=== PATIENT | male | born 1940 | race Caucasian/White ===

== ENCOUNTER 2022-07-06 15:14 | Emergency (ER) | payer OTHER, MEDICARE, SELFPAY ==
[2022-07-06 15:18] VITALS: BP 144/72; PULSE 80; TEMP 35.8; O2SAT 97; BMI 32.6
--- NOTE | 2022-07-06 15:43 | CRLHL7_ITS ---
For Patients: As a result of the Century Cures Act, medical imaging exams and procedure reports are released immediately into your electronic medical record. You may view this report before your referring provider. If you have questions, please contact your health care provider. Indication: Right upper quadrant pain Technique: Sonography of the abdomen was performed limited to the structures discussed below Comparison: None Findings: The liver is normal size and configuration. No focal mass. No biliary ductal dilatation. The pancreas as visualized appears normal. Portions are obscured by bowel gas. There is cholelithiasis. Wall thickness is normal at 2 millimeters. No pericholecystic fluid. The common duct measures 5 millimeters which is normal. There is a sonographic Montgomery`s sign The right kidney is normal in size measuring 9.7 x 4.8 x 6.5 centimeters. Small cyst noted measuring 1.2 centimeters in greatest dimension inferiorly. The right kidney is otherwise unremarkable. Impression: Cholelithiasis but no ultrasound findings of acute cholecystitis or common duct obstruction. Dictated by Marcellus Stone MD @ 07/06/2022 5:01:18 PM (Electronically Signed)
--- NOTE | 2022-07-06 16:02 | ED.ABDPAIN ---
HPI - Abdominal Pain General Date Seen: 07/06/22 Chief Complaint: Abdominal Pain Stated Complaint: GALL BLADDER ISSUE - SENT BY CLINIC Time Seen by Provider: 07/06/22 15:20 Source: patient and family Mode of arrival: ambulatory Limitations: no limitations History of Present Illness HPI narrative: 81-year-old gentleman presents here with right upper quadrant pain, he has had this for 3-4 days it is intermittent, the pain does go to his back, not related to eating he says in fact he does the eating effects it is more how he sits or twists or turns. Denies a fevers chills associated with this no nausea vomiting, is bowel movements have been normal, with no dysuria frequency. Denies any cough cold-like symptoms fevers chills or sweats and says he has absolutely no COVID. Went to the clinic today and was told that he could be seen and they suggested that he come to the emergency room. Has not tried any medications for this describes the pain is 5/10, he has company by his . MD elicited complaint: abdominal pain Pertinent past history: myocardial infarction Onset (ago): day(s) (3) Pain Consistency: intermittent and colicky Location: RUQ Severity: moderate Quality: cramping and fullness Radiation: R flank Exacerbating factors: movement Relieving factors: rest Related Data Home Medications Medication Instructions Recorded Confirmed alfuzosin 10 mg tablet,extended mg PO 07/06/22 release 24 hr rosuvastatin 10 mg tablet mg 07/06/22 Allergies Allergy/AdvReac Type Severity Reaction Status Date / Time No Known Drug Allergies Allergy Verified 07/06/22 15:24 Review of Systems Status of ROS Reports: 10 or more systems reviewed and unremarkable except as noted in History and below [facility] Medical History BPH (benign prostatic hyperplasia) Hernia Hypertension Surgical History History of coronary artery bypass graft Social History Smoking Status: Never smoker How often do you have a drink containing alcohol: never AUDIT-C Alcohol total score: 0 Non-prescribed substance use: denies use service: Yes Exam Const: Vital Signs, click to edit/add: Vital Signs - 24 hr 07/06/22 15:18 Temperature 96.5 F L Pulse Rate [Pulse Oximeter] 80 Blood Pressure [Ri ght Upper Arm] 144/72 H Pulse Oximetry 97 Oxygen Delivery Me thod Room Air Documenting provider has reviewed patient's vital signs: yes Common normals: no apparent distress, average body habitus, oriented x3, no limitations and well nourished HENMT: Common normals: normocephalic, head/scalp atraumatic, hearing grossly normal bilaterally, external ears normal, EAC's normal, TM's normal bilaterally, external nose normal, nasal mucous membranes and turbinates normal and moist oral mucous membranes Head and scalp: normal to inspection, normocephalic and atraumatic Face and sinus: normal facial exam, sinuses nontender and face symmetric Nose: external nose normal, nares normal and nasal mucous membranes and turbinates normal External ear: external ears normal External auditory canal: EAC's normal Tympanic membrane: TM's normal bilaterally Mouth: oral and palatal mucosa normal Teeth and gingiva: abnormal tooth and associated gingiva Throat: posterior oropharynx normal, tonsils normal and uvula midline Eye: Common normals: PERRL, EOMs intact bilaterally, conjunctivae normal, no scleral icterus, no papilledema, normal visual duffy by confrontation and fundi normal bilaterally General eye: normal appearance of both eyes Conjunctiva: conjunctiva(e) normal Pupil: PERRL Direct Ophthalmoscopy: no papilledema and fundi normal bilaterally Neck & C-Spine: Common normals: full ROM, no lymphadenopathy, supple, no meningeal signs, no JVD, thyroid normal and no carotid bruits General: normal visual inspection, trachea midline, anterior neck swelling and lymphadenopathy Thyroid: thyroid normal Lymph: Lymphatic: no lymphadenopathy noted and no lymphedema noted Chest: Common normals: inspection of chest normal Resp: Common normals: normal respiratory effort, no retractions, no use of accessory muscles and clear to auscultation bilaterally Auscultation: clear to auscultation bilaterally Cardio: Common normals: no JVD, regular rate, regular rhythm, S1 normal heart sound, S2 normal heart sound, no gallops, no clicks, no murmurs, no rub and peripheral pulses 2+ throughout Rate: regular rate Rhythm: regular rhythm Heart sounds: S1 normal and S2 normal Peripheral pulses: pulses 2+ throughout GI: Common normals: Normal to inspection, nondistended, normoactive bowel sounds present and no hepatosplenomegaly Inspection: normal to inspection Auscultation: normoactive bowel sounds Palpation: tender Details: RUQ and Montgomery's sign and no hepatosplenomegaly : Common normals: no CVA tenderness Bladder/kidney exam: no CVA tenderness Back & Pelvis: Common normals: no CVA tenderness, thoracic and lumbar spine normal to inspection, no thoracic nor lumbar tenderness, thoraco-lumbar ROM normal and straight leg raise negative bilaterally Extremity: Common normals: normal to inspection, full ROM, normal capillary refill, no joint enlargement, no clubbing, cyanosis or edema, no calf tenderness and no pedal edema Neuro: Common normals: oriented x3 Meningeal signs: no meningeal signs Course Vital Signs Vital signs: Initial Vital Signs Temperature 96.5 F L 07/06/22 15:18 Temperature Source Temporal Artery Scan 07/06/22 15:18 Pulse Rate 80 07/06/22 15:18 Blood Pressure 144/72 H 07/06/22 15:18 Blood Pressure Mean 96 07/06/22 15:18 Blood Pressure Position Supine 07/06/22 15:18 Pulse Oximetry 97 07/06/22 15:18 Oxygen Delivery Method 07/06/22 15:18 Vital Signs Temperature 96.5 F L 07/06/22 15:18 Pulse Rate 80 07/06/22 15:18 Blood Pressure 144/72 H 07/06/22 15:18 Pulse Oximetry 97 07/06/22 15:18 Oxygen Delivery Method 07/06/22 15:18 Temperature 96.5 F L 07/06/22 15:18 Pulse Rate 80 07/06/22 15:18 Blood Pressure 144/72 H 07/06/22 15:18 Pulse Oximetry 97 07/06/22 15:18 Oxygen Delivery Method 07/06/22 15:18 MDM - Abdominal Pain MDM Narrative Medical decision making narrative: During this evaluation of this patient I considered multiple differential diagnosis is which included the life-threatening such as appendicitis, aortic aneurysm, mesenteric ischemia, bowel perforation, volvulus, and bowel obstruction. Other differential diagnosis is include but are not limited to cholecystitis, pancreatitis, hepatitis, gastritis, GERD, diverticulitis, peptic ulcer disease, pyelonephritis/UTI, renal colic/stone, testicular torsion as well as other acute scrotal processes, inflammatory bowel disease, as well as other etiologies Differential Diagnosis Differential diagnosis: Likely abdominal pain, acute appendicitis, calculus of kidney, constipation, diverticulitis, gastroenteritis, pancreatitis and small bowel obstruction Medical Records Attestation: I reviewed the patient's medical records. Lab Data Attestation: I reviewed the patient's lab results. Discharge Plan Discharge Prescriptions: No Action rosuvastatin 10 mg tablet Label Comments: TAKE 1 TABLET BY MOUTH AT BEDTIME alfuzosin 10 mg tablet extended release 24 hr PO Label Comments: TAKE 1 TABLET BY MOUTH ONCE DAILY WITH MEAL Follow Up/Referrals: Marco Baldwin MD [Primary Care Provider] -
--- OUTSIDE RECORDS SUMMARY | 2022-07-06 16:22 | XMS_ITS | Continuity of Care Document ---
:1940 [facility] [address] [place] [address]- Encounter [facility]B Date(s): 12/02/20 - 12/03/20 [facility] [address] [place] [address]- [facility] Discharge Disposition: Routine Discharge Attending Physician: ISABELLE EASTMAN Allergies, Adverse Reactions, Alerts No Known Medication Allergies Assessment and Plan Extracted from: Title: Urgent Care/Same Day Care Note Author: JOSE EASTMAN Date: 12/02/20 1.??Dysuria There is evidence of??sugar in your uri ne,??is important to monitor??your blood sugar??and follow-up with your primary care physician regards to your elevated blood glucose.?? Additionally, this can co ntribute to??urinary tract infections.?? A prescription for Flomax was sent to your pharmacy??to help with??voiding your??bladder, and with urinary frequency and urgency. ??Additionally, an antibiotic w as prescribed??due to concerns about??ur inary tract infection/prostatitis.?? Take this medication as directed.?? Is importantly follow-up with your primary care physician??for these issues??for ongoing care/treatment.?? Ordered: [id number] Urinalysis Dipstick, Manual POC A mb, 12/02/20 17:01:00 MST, Dysuria 41101 Glucose, Finger Stick POC Amb, 17:18:00 MST, Dysuria Blood glucose elevated Urine Culture, Source: [place], Routine, Routine, RT, 12/02/20 17:18:00 MST, Nurse Collect, 12/02/20 17:20:00 MST, Dysuria, [facility] ?? 2.??Blood glucose elevated Blood glucose in office today was 182.? ? Recommend following up with??primary care physician??for further recommendations about monitoring and treatment??of elevated blood glucose. Ordered: [id number] Glucose, Finger Stick POC Amb, 17:18:00 MST, Dysuria Blood glucose elevated ?? Orders: ciprofloxacin, 250 mg 1 tab, Oral, Q12H , X 5 days, # 10 tab, 0 Refill(s), Signed: 12/02/20 17:27:00 MST, Acute, Pharmacy: [id number], 1 tab Oral Q12H,x5 days, 175 cm, 12/02/20 16:35:00 MS T, Height, 105 kg, 12/02/20 16:39:00 MST , Weight Dosing tamsulosin, 0.4 mg 1 cap, Oral, Daily, # 3 cap, 0 Refill(s), Signed: 12/02/20 17:28:00 MST, Maintenance, Pharmacy: [id number], 1 cap Oral Daily,x3 days, 175 cm, 12/02/20 16:35:00 MST, Kleber ght, 105 kg, 12/02/20 16:39:00 MST, [facility] ht Dosing Diagnostic Tests PendingUrine Culture 12/02/20 Medications Adult Aspirin Regimen 81 mg oral delayed release tablet 81 mg 1 tab, Oral, Daily, 0 Refill(s), Signed: 12/02/20 16:37:00 MST, Maintenance Start Date: 12/02/20 Status: OrderedamLODIPine 5 mg, Oral, Daily, 0 Refill(s), Signed: 11/08/19 5:55:00 MST, Acute Start Date: 11/08/19 Status: OrderedCipro 250 mg oral tablet 250 mg 1 tab, Oral, Q12H, X 5 days, # 10 tab, 0 Refill(s), Signed: 12/02/20 17:27:00 MST, Acute, Pharmacy: [id number], 1 tab Oral Q12H,x5 days, 175 cm, 12/02/20 16:35:00 MST, Height, 105 kg, 12/02/20 16:39:00 MST, Weight Dosing Start Date: 12/02/20 Stop Date: 12/07/20 Status: OrderedFlomax 0.4 mg oral capsule 0.4 mg 1 cap, Oral, Daily, # 3 cap, 0 Refill(s), Signed: 12/02/20 17:28:00 MST, Maintenance, Pharmacy: [id number], 1 cap Oral Daily,x3 days, 175 cm, 12/02/20 16:35:00 MST, Height, 105 kg,12/02/20 16:39:00 MST, Weight Dosing Start Date: 12/02/20 Stop Date: 12/05/20 Status: Orderedrosuvastatin 10 mg, Oral, Daily, 0 Refill(s), Signed: 11/08/19 5:55:00 MST, Acute Start Date: 11/08/19 Status: Ordered Problem List Condition Effective Dates Status Health Status Informant Aortic stenosis, moderate(Confirmed) Active Hypertension(Confirmed) Active Insulin resistance(Confirmed) Active Procedures Procedure Date Related Diagnosis Body Site Status CABG - Coronary artery bypass graft 2008 Completed Hernia repair 1988 Completed Results Laboratory List Name Date 29056 Glucose, Finger Stick POC Amb 12/02/20 49511 Urinalysis Dipstick, Manual POC Amb 12/02/20 Most recent to oldest [Reference Range]: 1 POCT Urine Clarity Clear (12/02/20 5:20 PM) POCT Glucose Glucometer Capillary [70-115 mg/dL] 182 m g/dL *H* (12/02/20 5:20 PM) Blood Glucose Testing Reason Routine (12/02/20 5:20 PM) Blood Glucose Stick Site Finger (12/02/20 5:20 PM) POCT Specific [place] 1.025 (12/02/20 5:20 PM) POCT pH 6.0 (12/02/20 5:20 PM) POCT Urobilinogen Normal (12/02/20 5:20 PM) POCT Leukocyte Esterase Trace (15 Tariq/uL) (12/02/20 5:20 PM) POCT Nitrite Negative (12/02/20 5:20 PM) POCT Protein Negative (12/02/20 5:20 PM) POCT Ketones Negative (12/02/20 5:20 PM) POCT Bilirubin Negative (12/02/20 5:20 PM) POCT Blood Negative (12/02/20 5:20 PM) POCT Glucose Urine Dipstick 1+ (12/02/20 5:20 PM) POCT Color Urine Dipstick Yellow (12/02/20 5:20 PM) Vital Signs Most recent to oldest [Reference Range]: 1 Respiratory Rate 17 br/min (12/02/20 4:35 PM) Blood Pressure 146/90 mmHg (12/02/20 4:35 PM) SpO2 96 % (12/02/20 4:35 PM) Height 175 cm (12/02/20 4:35 PM) Weight 105 kg (12/02/20 4:35 PM) BMI (Pt Care) 34.29 kg/m2 (12/02/20 4:35 PM) Temperature Oral 36.2 DegC (12/02/20 4:35 PM) Heart Rate Monitored 93 bpm (12/02/20 4:35 PM) Social History Social History Type Response Smoking Status Never (less than 100 in life time) entered on: 12/02/20 Sex Hospital Discharge Instructions Patient Tpwkenwsh52/26/2021 17:29:44Diabetes with High Blood SugarDiabetes with High Blood Sugar You have been treated for high blood sugar (hyperglycemia). This may be because of an infection or other illness. Or it may be from eating too many sweets or starches. Or it may be from not taking enough insulin or other diabetes medicine. Home care Check your blood sugar level at least 2 times a day. Write it down the results. Do this before breakfast and before dinner. If you take insulin, also write down your routine insulin dose. Note any other doses you needed based on your sliding scale or as advised by your healthcare provider. Do this forthe next 3 to 5 days. High blood sugar may cause symptoms that you can learn to spot. These include: ???Peeing often ???Thirst ???Headache ???Breath that smells fruity ???Nausea or vomiting ???Belly pain If you have symptoms of high blood sugar, use a blood or urine test to find out what your blood sugar level is. If it is above your usual range, use the sliding scale regular insulin dose from your healthcare provider. Call your provider for advice if you were not given a range for your insulin dose. If your blood sugar is over 240 mg/dL, check your urine for ketones. Follow-up care Follow up with your healthcare provider, or as advised. You may need to meet with your provider in the next week. You will likely look at your blood sugar records together. You may need to change your dose of insulin or other diabetes medicine. When to seek medical advice Call your healthcare provider right away if these occur: ???Symptoms of high blood sugar that don't get better with the treatment your provider advised. Thisis especially true if you also have ketones in your urine. ???Blood sugar over 300 mg/dl. If you can???t reach your healthcare provider, go to a hospital emergency room or urgent care center. Call 911 Call 911 if you have any of the following: ???Confusion ???Dizziness, lightheadedness, or loss of consciousness ???Shortness of breath ???Chest pain ???Weakness of an arm, leg, or one side of the face ???Sudden trouble with speech or vision ?? 4644-7386 [employer]. All rights reserved. This information is not intended as a substitute for professional medical care. Always follow your healthcare professional's instructions. 12/02/2020 17:29:12ProstatitisProstatitis?? The prostate gland is located deep inside the body at the base of the bladder. Prostatitis is an inflammation of the prostate gland. This can occur with or without infection. Most cases of prostatitis are intermodal dispatcher (chronic). Most do not include a bacterial infection. ???Chronic prostatitis is more common in older men. It is often an inflammatory condition and not aninfection. But bacterial infection can also cause chronic prostatitis. It can cause pain in the rectum, urethra, bladder, or scrotum. It can also make you unable to fully empty the bladder.??You may urinate often. Or you may have burning with urination. Prostatitis may also cause painful ejaculation and erectile dysfunction. ???Acute prostatitis happens suddenly. This often occurs in??men younger than??35. It is from a bacterial infection. You may have severe symptoms such as fever, chills, muscle aches, and pain in the area??between the scrotum and anus (perineum). You may have a hard time urinating. Or you may have painor burning when urinating. There may be blood or pus in the urine. Your healthcare provider may do a??culture test??on prostate fluids or discharge from the penis. This will help figure out if bacteria are the cause. Treatment can include antibiotics, anti-inflammatory medicine, prostate medicines, and stool softeners. Home care These guidelines will help you care for yourself at home: ???Rest at home until the fever is gone and you are feeling better. ???A hot sitz bath may offer some relief. Fill a tub with 6 inches of hot water. Allow the water to run so you can keep it hot for 10 to 15 minutes. ???Drink plenty of fluids. Don't drink alcohol or caffeine until all symptoms are gone. ???If your healthcare gives you an antibiotic, take it exactly as you are told. Take it until it is all gone. ???Constipation causes straining and pain. Prevent constipation??by eating natural laxatives such asprunes, fresh fruits, and whole-grain cereals. If needed, use a mild [id number] (OTC) laxativefor constipation. An OTC stool softener may be used to keep the stools soft. ???If sex is uncomfortable or painful, don't have sex until symptoms get better. ???You may use OTC medicines for pain and fever, unless another medicine was given.??If you have chronic liver or kidney disease, talk with your healthcare provider before??using these medicines. Also talk with your provider if you've??ever had a stomach ulcer or GI (gastrointestinal) bleeding. Follow-up care Follow up with your healthcare provider, a urologist, or as advised to be sure you are responding totreatment. Your healthcare provider may want to see you after you finish your antibiotics to be surethe infection has cleared. If a culture was taken, you may call for the results as directed. A culture test can help your provider know if you are on the correct antibiotic. Call 911 Call 911if any of these occur: ???Weakness, dizziness, or fainting When to get medical advice Call your healthcare provider right away??if any of these occur: ???Fever of 100.4??F (38??C) or higher, or as directed by your healthcare provider ???Unable to pass urine for 8 hours ???Pressure or pain in your bladder gets worse ???Painful swelling of the testicle or scrotum ?? [id number] [employer]. All rights reserved. This information is not intended as a substitute for professional medical care. Always follow your healthcare professional's instructions.
[2022-07-06 16:33] LABS: Chloride* 102 mmol/L (96-114); Sodium* 141 mmol/L (135-149)
[2022-07-06 16:34] LABS: Albumin* 4.7 g/dL (3.3-5.0); Potassium* 4.3 mmol/L (3.6-5.1)
[2022-07-06 16:37] LABS: Alkaline Phosphatase* 73 U/L (40-150); Amylase* 117 U/L (18-89); Aspartate Amino Transferase* 58 U/L (12-35); Bilirubin Direct* 0.3 mg/dL (0.0-0.5); Bilirubin Total* 0.7 mg/dL (0.1-1.5); Blood Urea Nitrogen* 22 mg/dL (7-30); Calcium* 9.2 mg/dL (8.4-10.6); Carbon Dioxide* 28 mmol/L (20-32); Creatinine* 0.9 mg/dL (0.5-1.5); Est. Creatinine Clearance* 57.93; Estimated Glomerular Filt Rate 86 ml/min; Glucose* 90 mg/dL (60-115); Lipase* 79 U/L (23-300); Total Protein* 8.3 g/dL (6.0-8.3)
[2022-07-06 16:38] LABS: Alanine Aminotransferase* 22 U/L (4-50)
[2022-07-06 16:40] LABS: Basophils Absolute Auto 0.01 K/uL (0.00-0.30); Basophils Percent Auto 0.2 % (0.0-3.0); Eosinophils Absolute Auto 0.02 K/uL (0.00-0.50); Eosinophils Percent Auto 0.4 % (0.0-7.0); Hematocrit 41.6 % (37.0-53.0); Hemoglobin* 14.2 gm/dL (13.5-17.5); Immature Granulocytes Abs Auto 0.07 K/uL (0.00-0.30); Lymphocytes Absolute Auto 1.88 K/uL (0.90-2.90); Lymphocytes Percent Auto 38.8 % (20-44); Mean Corpuscular HGB Conc 34 gm/dL (32-36); Mean Corpuscular Hemoglobin 31 pg (26-34); Mean Corpuscular Volume 90 fL (80-100); Monocytes Percent Auto 16.1 % (0.0-11.0); Neutrophils Absolute Auto 2.08 K/uL (1.7-7.0); Neutrophils Percent Auto 43.1 % (42.0-72.0); Platelet Count* 96 K/uL (140-440); RDW Coefficient of Variation % 12.1 % (11.5-15.5); Red Blood Count 4.61 m/uL (4.30-5.90); White Blood Count* 4.84 K/uL (4.50-11.00)
[2022-07-06 16:42] LABS: C Reactive Protein* < 0.5 mg/dL (0.5-1.0)
[2022-07-06 16:43] LABS: Slide Review Reflex No
[2022-07-06 16:55] LABS: Appearance Urine Clear (Clear); Bilirubin Urine Negative (Negative); Blood Urine Negative (Negative); Color Urine Yellow (Yellow); Glucose Urine Negative (Negative); Ketones Urine Negative (Negative); Leukocyte Esterase Urine Negative (Negative); Nitrite Urine Negative (Negative); Protein Urine Negative (Negative); Specific Gravity Urine 1.015 (1.000-1.030); Urobilinogen Urine 0.2 (0.2-1.0); pH Urine 5.5 (5.0-8.5)
--- NOTE | 2022-07-06 17:02 | ED.ABDPAIN ---
HPI - Abdominal Pain General Date Seen: 07/06/22 Chief Complaint: Abdominal Pain Stated Complaint: GALL BLADDER ISSUE - SENT BY CLINIC Time Seen by Provider: 07/06/22 15:20 Source: patient and family Mode of arrival: ambulatory Limitations: no limitations History of Present Illness HPI narrative: Patient is a very nice 81-year-old gentleman who presents here for right upper quadrant pain that he has had for 3-4 days, is not really worsening he describes the pain as 5/10, there is some radiation to his back, but no where else. He finds no worsening with eating, he is has some with movement he can make it worse. He was told maybe is gallbladder was sent here. 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 Denies any fevers chills or sweats there is no nausea vomiting, denies any diarrhea dysuria frequency, has not taking any medications for this. MD elicited complaint: abdominal pain Pertinent past history: myocardial infarction Onset (ago): day(s) (3) Pain Consistency: intermittent Location: RUQ Severity: moderate Quality: cramping and dull Radiation: R flank Migration to: no migration Exacerbating factors: movement Relieving factors: nothing Related Data Home Medications Medication Instructions Recorded Confirmed alfuzosin 10 mg tablet,extended mg PO 07/06/22 release 24 hr rosuvastatin 10 mg tablet mg 07/06/22 Allergies Allergy/AdvReac Type Severity Reaction Status Date / Time No Known Drug Allergies Allergy Verified 07/06/22 15:24 Review of Systems Status of ROS Reports: 10 or more systems reviewed and unremarkable except as noted in History and below PFSH PFS Medical History BPH (benign prostatic hyperplasia) Hernia Hypertension Surgical History History of coronary artery bypass graft Social History Smoking Status: Never smoker How often do you have a drink containing alcohol: never AUDIT-C Alcohol total score: 0 Non-prescribed substance use: denies use service: Yes Exam Narrative: Exam Narrative: Patient is a very nice gentleman in no apparent distress nontoxic sitting in the room. His pupils are equal round reactive to light there is no scleral icterus redness TMs bilaterally are normal oropharynx is normal there is no adenopathy anterior or posterior chains his neck is supple full range of motion is appreciated, chest is good air entry bilaterally with no wheezes crackles noted there is no signs of respiratory distress. Heart sounds are normal, but he does have a blowing systolic murmur across his precordium to his aortic area I described as 3 to 4/6. He tells me this is a known aortic stenosis murmur. Is followed by Cardiology. His abdomen shows some tenderness in the right upper quadrant and what I would describe as a positive Montgomery sign, but he does not seem that uncomfortable with that there is no pedal splenomegaly bowel sounds are normal, there is no rigidity, there is no CVA tenderness, and no hernias are noted on examination of his abdomen. His extremities appear normal, with no edema swelling, his normal pulses peripherally and power is normal both proximally and distally. Sensation is normal. Any does not have any rashes of the skin. Const: Vital Signs, click to edit/add: Vital Signs - 24 hr 07/06/22 15:18 Temperature 96.5 F L Pulse Rate [Pulse Oximeter] 80 Blood Pressure [Ri ght Upper Arm] 144/72 H Pulse Oximetry 97 Oxygen Delivery Me thod Room Air Documenting provider has reviewed patient's vital signs: yes Common normals: no apparent distress and average body habitus Course Course Hospital Course: Spoke to the patient and his , after discussing the case with : Our surgeon. She will see the patient tomorrow, I think in the absence of any radiologic evidence of cholecystitis, and normal lab tests, including troponin and EKG he is reasonable to go home. He wants to just use Tylenol ibuprofen which I think along with bland diet would be reasonable. He did discuss with me that if he did worsen, he will come back to the ER which I think is what I would want to me to do. Vital Signs Vital signs: Initial Vital Signs Temperature 96.5 F L 07/06/22 15:18 Temperature Source Temporal Artery Scan 07/06/22 15:18 Pulse Rate 80 07/06/22 15:18 Blood Pressure 144/72 H 07/06/22 15:18 Blood Pressure Mean 96 07/06/22 15:18 Blood Pressure Position Supine 07/06/22 15:18 Pulse Oximetry 97 07/06/22 15:18 Oxygen Delivery Method 07/06/22 15:18 Vital Signs Temperature 96.5 F L 07/06/22 15:18 Pulse Rate 80 07/06/22 15:18 Blood Pressure 144/72 H 07/06/22 15:18 Pulse Oximetry 97 07/06/22 15:18 Oxygen Delivery Method 07/06/22 15:18 Temperature 96.5 F L 07/06/22 15:18 Pulse Rate 80 07/06/22 15:18 Blood Pressure 144/72 H 07/06/22 15:18 Pulse Oximetry 97 07/06/22 15:18 Oxygen Delivery Method 07/06/22 15:18 MDM - Abdominal Pain MDM Narrative Medical decision making narrative: During this evaluation of this patient I considered multiple differential diagnosis is which included the life-threatening such as appendicitis, aortic aneurysm, mesenteric ischemia, bowel perforation, volvulus, and bowel obstruction. Other differential diagnosis is include but are not limited to cholecystitis, pancreatitis, hepatitis, gastritis, GERD, diverticulitis, peptic ulcer disease, pyelonephritis/UTI, renal colic/stone, testicular torsion as well as other acute scrotal processes, inflammatory bowel disease, as well as other etiologies Medical Records Attestation: I reviewed the patient's medical records. Lab Data Attestation: I reviewed the patient's lab results. Labs: Lab Results 07/06/22 07/06/22 07/06/22 Range/Units 15:44 16:03 16:08 WBC 4.84 (4.50-11.00) K/uL RBC 4.61 (4.30-5.90) m/uL Hgb 14.2 (13.5-17.5) gm/dL Hct 41.6 (37.0-53.0) % MCV 90 (80-100) fL MCH 31 (26-34) pg MCHC 34 (32-36) gm/dL RDW Coeff of Matthieu 12.1 (11.5-15.5) % Plt Count 96 L (140-440) K/uL Neut % (Auto) 43.1 (42.0-72.0) % Lymph % (Auto) 38.8 (20-44) % [place] % (Auto) 16.1 H (0.0-11.0) % Eos % (Auto) 0.4 (0.0-7.0) % Baso % (Auto) 0.2 (0.0-3.0) % Neut # (Auto) 2.08 (1.7-7.0) K/uL Lymph # (Auto) 1.88 (0.90-2.90) K/uL [place] # (Auto) 0.80 (0.00-0.90) K/UL Eos # (Auto) 0.02 (0.00-0.50) K/uL Baso # (Auto) 0.01 (0.00-0.30) K/uL Abs Immat Gran (auto) 0.07 (0.00-0.30) K/uL Sodium (135-149) mmol/L Potassium (3.6-5.1) mmol/L Chloride (96-114) mmol/L Carbon Dioxide (20-32) mmol/L BUN (7-30) mg/dL Creatinine (0.5-1.5) mg/dL Estimated Creat Clear Estimated GFR ml/min Glucose (60-115) mg/dL Calcium (8.4-10.6) mg/dL Total Bilirubin (0.1-1.5) mg/dL Direct Bilirubin (0.0-0.5) mg/dL AST (12-35) U/L ALT (4-50) U/L Alkaline Phosphatase (40-150) U/L Troponin I < 0.01 L (0.01-0.04) ng/mL C-Reactive Protein (0.5-1.0) mg/dL Total Protein (6.0-8.3) g/dL Albumin (3.3-5.0) g/dL Amylase (18-89) U/L Lipase (23-300) U/L Urine Color Yellow (Yellow) Urine Appearance Clear (Clear) Urine pH 5.5 (5.0-8.5) Ur Specific [place] 1.015 (1.000-1.030) Urine Protein Negative (Negative) Urine Glucose (UA) Negative (Negative) Urine Ketones Negative (Negative) Urine Blood Negative (Negative) Urine Nitrite Negative (Negative) Urine Bilirubin Negative (Negative) Urine Urobilinogen 0.2 (0.2-1.0) Ur Leukocyte Esterase Negative (Negative) SARS-CoV-2 (PCR) (Negative) Influenza Type A (PCR) (Negative) Influenza Type B (PCR) (Negative) RSV (PCR) (Negative) 07/06/22 07/06/22 Range/Units 16:08 16:08 WBC (4.50-11.00) K/uL RBC (4.30-5.90) m/uL Hgb (13.5-17.5) gm/dL Hct (37.0-53.0) % MCV (80-100) fL MCH (26-34) pg MCHC (32-36) gm/dL RDW Coeff of Matthieu (11.5-15.5) % Plt Count (140-440) K/uL Neut % (Auto) (42.0-72.0) % Lymph % (Auto) (20-44) % [place] % (Auto) (0.0-11.0) % Eos % (Auto) (0.0-7.0) % Baso % (Auto) (0.0-3.0) % Neut # (Auto) (1.7-7.0) K/uL Lymph # (Auto) (0.90-2.90) K/uL [place] # (Auto) (0.00-0.90) K/UL Eos # (Auto) (0.00-0.50) K/uL Baso # (Auto) (0.00-0.30) K/uL Abs Immat Gran (auto) (0.00-0.30) K/uL Sodium 141 (135-149) mmol/L Potassium 4.3 (3.6-5.1) mmol/L Chloride 102 (96-114) mmol/L Carbon Dioxide 28 (20-32) mmol/L BUN 22 (7-30) mg/dL Creatinine 0.9 (0.5-1.5) mg/dL Estimated Creat Clear 57.93 Estimated GFR 86 ml/min Glucose 90 (60-115) mg/dL Calcium 9.2 (8.4-10.6) mg/dL Total Bilirubin 0.7 (0.1-1.5) mg/dL Direct Bilirubin 0.3 (0.0-0.5) mg/dL AST 58 H (12-35) U/L ALT 22 (4-50) U/L Alkaline Phosphatase 73 (40-150) U/L Troponin I (0.01-0.04) ng/mL C-Reactive Protein < 0.5 L (0.5-1.0) mg/dL Total Protein 8.3 (6.0-8.3) g/dL Albumin 4.7 (3.3-5.0) g/dL Amylase 117 H (18-89) U/L Lipase 79 (23-300) U/L Urine Color (Yellow) Urine Appearance (Clear) Urine pH (5.0-8.5) Ur Specific [place] (1.000-1.030) Urine Protein (Negative) Urine Glucose (UA) (Negative) Urine Ketones (Negative) Urine Blood (Negative) Urine Nitrite (Negative) Urine Bilirubin (Negative) Urine Urobilinogen (0.2-1.0) Ur Leukocyte Esterase (Negative) SARS-CoV-2 (PCR) Negative SARS-CoV-2 (Negative) Influenza Type A (PCR) Negative PCR FLU A (Negative) Influenza Type B (PCR) Negative PCR FLU B (Negative) RSV (PCR) Negative PCR RSV (Negative) Imaging Data Right upper quadrant ultrasound: My impression: Cholelithiasis Radiologist's impression: Patient: FRANCES RAGSDALE Facility: [facility] Site . Site : [id number] Study: US Abdomen -07/06/2022 4:38:04 PM Ordering Physician: Mey Gannon Final Report: Indication: Right upper quadrant pain Technique: Sonography of the abdomen was performed limited to the structures discussed below Comparison: None Findings: The liver is normal size and configuration. No focal mass. No biliary ductal dilatation. The pancreas as visualized appears normal. Portions are obscured by bowel gas. There is cholelithiasis. Wall thickness is normal at 2 millimeters. No pericholecystic fluid. The common duct measures 5 millimeters which is normal. There is a sonographic Montgomery`s sign The right kidney is normal in size measuring 9.7 x 4.8 x 6.5 centimeters. Small cyst noted measuring 1.2 centimeters in greatest dimension inferiorly. The right kidney is otherwise unremarkable. Impression: Cholelithiasis but no ultrasound findings of acute cholecystitis or common duct obstruction. Dictated by Marcellus Stone MD @ 07/06/2022 5:01:18 PM (Electronic Signature) ECG Data Attestation: I personally reviewed and interpreted this ECG as follows: ECG interpretation date: 07/06/22 Prior ECG tracings: available for review Interpretation: EKG shows normal sinus rhythm with a ventricular rate of 74, his QRS QT and VA normal, no specific ST wave changes suggestive of ischemia but he is borderline left ventricular hypertrophy with repolarization abnormality. Discharge Plan Discharge Clinical Impression: Cholelithiasis, Biliary colic Patient Disposition: Home w/ Parent or Adult Condition: Stable Instructions: Biliary Colic (ED), Gallstones (ED), Laparoscopic Cholecystectomy (DC) Additional Instructions: Home rest use of bland diet, Tylenol Advil for the discomfort follow up tomorrow in surgery clinic at the [facility] with Dr. Bella. Please call her nurse Char in the morning approximately 830 at [phone] and say that she cleared you to be double booked in clinic tomorrow. Overnight if you have increasing abdominal pain fevers chills nausea vomiting then need to come back to the emergency room. Prescriptions: No Action rosuvastatin 10 mg tablet Label Comments: TAKE 1 TABLET BY MOUTH AT BEDTIME alfuzosin 10 mg tablet extended release 24 hr PO Label Comments: TAKE 1 TABLET BY MOUTH ONCE DAILY WITH MEAL Follow Up/Referrals: Nadine Bella MD [Staff Physician] - Marco Baldwin MD [Primary Care Provider] - Stand Alone Forms: [employer] Info Instructions
[2022-07-06 17:16] LABS: Troponin I* < 0.01 ng/mL (0.01-0.04)
[2022-07-06 17:17] LABS: SARS PCR* Negative SARS-CoV-2 (Negative)
[2022-07-06 17:18] LABS: PCR FLU A Negative PCR FLU A (Negative); PCR FLU B Negative PCR FLU B (Negative); PCR RSV Negative PCR RSV (Negative)
[2022-07-06 17:26] LABS: RBC Urine 0-2 (0-2); WBC Urine 0-2 (0-5)
[2022-07-06 17:49] VITALS: PULSE 80; TEMP 35.8; O2SAT 97
== END 2022-07-06 17:49 | disposition home or self-care (01) ==
PROVIDERS: Emergency Provider Family Medicine; PCP Surgery
DX: K80.21 Calculus of gallbladder without cholecystitis with obstruction (principal)
CPT/HCPCS: 36415; 76705; 80048; 80076; 81001; 82150; 83690; 84484; 85025; 86140; 87502; 87634; 87635; 93005; 99284; 99285

== ENCOUNTER 2022-07-16 11:06 | Outpatient (CLI) | payer OTHER, MEDICARE, SELFPAY ==
--- NOTE | 2022-07-26 14:27 | ONC.NURNOTE ---
Received referral for patient to be seen for non-malignant hematology for cardiac surgery. Patient has surgery scheduled on 08/02 and primary care would like him to be seen [facility] unable to fit this patient into Dr. Guo's overbooked schedule. Primary care would prefer to have patient seen sooner than availability. Primary clinic will contact [facility] for an appointment.
== END 2022-07-16 11:07 | disposition home or self-care (01) ==
LOC: RAD 11:08
PROVIDERS: PCP Surgery; Visit Provider Internal Medicine Cardiovascular Disease
DX: I35.9 Nonrheumatic aortic valve disorder, unspecified (principal); I35.1 Nonrheumatic aortic (valve) insufficiency
CPT/HCPCS: 93306

== ENCOUNTER 2022-07-27 12:31 | Outpatient (RCR) | payer OTHER, MEDICARE, SELFPAY ==
[2022-07-27 15:05] LABS: Albumin* 4.7 g/dL (3.3-5.0)
[2022-07-27 15:08] LABS: Alanine Aminotransferase* 16 U/L (4-50); Alkaline Phosphatase* 64 U/L (40-150); Aspartate Amino Transferase* 52 U/L (12-35); Bilirubin Direct* 0.2 mg/dL (0.0-0.5); Bilirubin Total* 0.7 mg/dL (0.1-1.5)
[2022-07-27 15:56] LABS: Hepatitis C Virus Antibody* Negative (Negative)
[2022-07-31 00:54] LABS: Copper, Serum/Plasma 83.7 ug/dL (70.0-140.0)
[2022-07-31 09:03] LABS: Folate, Serum > 22.3 ng/mL (>=5.9)
== END 2023-01-23 23:59 | disposition home or self-care (01) ==
LOC: CCIC 12:31
PROVIDERS: PCP Surgery; Visit Provider Internal Medicine Hematology & Oncology
DX: D69.6 Thrombocytopenia, unspecified (principal)
CPT/HCPCS: 36415; 80076; 82525; 82746; 86803; 99202; 99204; 99215

== ENCOUNTER 2022-08-01 16:10 | Emergency (ER) | payer OTHER, SELFPAY ==
[2022-08-01 16:45] VITALS: BP 132/55; PULSE 83; RESP 20; TEMP 36.8; O2SAT 95; BMI 32.2
[2022-08-01 17:06] LABS: Appearance Urine Cloudy (Clear); Bilirubin Urine Negative (Negative); Blood Urine Negative (Negative); Color Urine Yellow (Yellow); Glucose Urine Negative (Negative); Ketones Urine Negative (Negative); Leukocyte Esterase Urine 3+ (Negative); Nitrite Urine Positive (Negative); Protein Urine Negative (Negative); Specific Gravity Urine 1.015 (1.000-1.030); pH Urine 8.5 (5.0-8.5)
[2022-08-01 17:15] LABS: Bacteria Urine Many; RBC Urine 0-2 (0-2)
[2022-08-01 17:31] LABS: Basophils Percent Auto 0.2 % (0.0-3.0); Eosinophils Percent Auto 0.2 % (0.0-7.0); Hematocrit 39.1 % (37.0-53.0); Hemoglobin* 13.4 gm/dL (13.5-17.5); Immature Granulocytes Abs Auto 0.02 K/uL (0.00-0.30); Lymphocytes Percent Auto 36.8 % (20-44); Mean Corpuscular HGB Conc 34 gm/dL (32-36); Mean Corpuscular Hemoglobin 31 pg (26-34); Mean Corpuscular Volume 90 fL (80-100); Monocytes Percent Auto 15.4 % (0.0-11.0); Neutrophils Percent Auto 46.9 % (42.0-72.0); Platelet Count* 88 K/uL (140-440); RDW Coefficient of Variation % 12.4 % (11.5-15.5); Red Blood Count 4.33 m/uL (4.30-5.90)
[2022-08-01 17:34] LABS: Slide Review Reflex No
--- NOTE | 2022-08-01 17:44 | ED_ITS ---
HPI - General Adult General Time Seen by Provider: 17:44 Date Seen: 08/01/22 Chief complaint: Urogenital Problems, Male Stated complaint: Possible UTI Time Seen by Provider: 08/01/22 16:57 Source: patient History of Present Illness HPI narrative: 81-year-old male presents with onset of dysuria about 10:00 a.m. this morning. He reports he has been feeling well recently. When he voided about 10:00 a.m. this morning he said it was burning. He has not noted any blood in his urine. He has not had any fever flank pain back pain vomiting. He does have a history of recurrent urinary tract infections in the past. He is scheduled for a TAVR procedure for severe aortic stenosis tomorrow. To be performed at [facility]. Related Data Home Medications Medication Instructions Recorded Confirmed alfuzosin 10 mg tablet,extended mg PO 07/06/22 07/27/22 release 24 hr rosuvastatin 10 mg tablet mg 07/06/22 07/27/22 acetaminophen 500 mg oral powder 500 mg PO Q6H PRN 07/27/22 07/27/22 packet (Tylenol Extra Strength) naproxen sodium 220 mg capsule 440 mg PO BID PRN 07/27/22 07/27/22 (Aleve) nitroglycerin 0.3 mg sublingual 0.3 mg sublingual Q5M PRN 07/27/22 07/27/22 tablet Previous Rx's Medication Instructions Recorded mecobalamin (vitamin B12) 1,000 1,000 mcg PO QDAY #90 tabs 07/27/22 mcg chewable tablet (B12 Active) Allergies Allergy/AdvReac Type Severity Reaction Status Date / Time No Known Drug Allergies Allergy Verified 07/27/22 13:15 Review of Systems Narrative: He reports feeling fine up until this morning when he had dysuria. He is not having chest pain or shortness of breath. He has not had any syncope. No other symptoms of recent illness. [facility] Medical History (Updated 08/01/22 @ 17:54 by Alireza Dasilva MD) Anxiety BPH (benign prostatic hyperplasia) Coronary artery disease Diabetes mellitus type 2 in obese Esophageal stricture Hernia Hypertension Recurrent urinary tract infection Severe aortic stenosis Surgical History (Updated 08/01/22 @ 17:49 by Alireza Dasilva MD) History of coronary artery bypass graft History of hernia repair Social History Smoking Status: Never smoker How often do you have a drink containing alcohol: never AUDIT-C Alcohol total score: 0 Non-prescribed substance use: denies use service: Yes Exam Narrative: Exam Narrative: He is alert and appears in no distress. He gives his own history. Eyes normal. Oropharynx normal. Neck is supple without mass or adenopathy. Respirations are clear to auscultation. Cardiovascular: S1, S2, regular rate and rhythm. Two to 3/6 systolic ejection murmur heard across the precordium. No gallop or rub. Abdomen: Bowel sounds active. Abdomen is soft without tenderness or mass. External genitalia normal. Extremities without edema. Good peripheral pulses. He has no tenderness to percussion over his CVA area. Const: Vital Signs, click to edit/add: Vital Signs - 24 hr 08/01/22 16:45 Temperature 98.2 F Pulse Rate [Left P ulse Oximeter] 83 Respiratory Rate 20 Blood Pressure [Le ft Upper Arm] 132/55 L Pulse Oximetry 95 Oxygen Delivery Me thod Room Air Documenting provider has reviewed patient's vital signs: yes Course Vital Signs Vital signs: Initial Vital Signs Temperature 98.2 F 08/01/22 16:45 Temperature Source Temporal Artery Scan 08/01/22 16:45 Pulse Rate 83 08/01/22 16:45 Respiratory Rate 20 08/01/22 16:45 Blood Pressure 132/55 L 08/01/22 16:45 Blood Pressure Mean 80 08/01/22 16:45 Blood Pressure Position Sitting 08/01/22 16:45 Pulse Oximetry 95 08/01/22 16:45 Oxygen Delivery Method 08/01/22 16:45 Vital Signs Temperature 98.2 F 08/01/22 16:45 Pulse Rate 83 08/01/22 16:45 Respiratory Rate 20 08/01/22 16:45 Blood Pressure 132/55 L 08/01/22 16:45 Pulse Oximetry 95 08/01/22 16:45 Oxygen Delivery Method 08/01/22 16:45 Temperature 98.2 F 08/01/22 16:45 Pulse Rate 83 08/01/22 16:45 Respiratory Rate 20 08/01/22 16:45 Blood Pressure 132/55 L 08/01/22 16:45 Pulse Oximetry 95 08/01/22 16:45 Oxygen Delivery Method 08/01/22 16:45 Medical Decision Making Lab Data Labs: Lab Results 08/01/22 08/01/22 Range/Units 16:55 17:23 WBC 4.10 L (4.50-11.00) K/uL RBC 4.33 (4.30-5.90) m/uL Hgb 13.4 L (13.5-17.5) gm/dL Hct 39.1 (37.0-53.0) % MCV 90 (80-100) fL MCH 31 (26-34) pg MCHC 34 (32-36) gm/dL RDW Coeff of Matthieu 12.4 (11.5-15.5) % Plt Count 88 L (140-440) K/uL Neut % (Auto) 46.9 (42.0-72.0) % Lymph % (Auto) 36.8 (20-44) % [place] % (Auto) 15.4 H (0.0-11.0) % Eos % (Auto) 0.2 (0.0-7.0) % Baso % (Auto) 0.2 (0.0-3.0) % Neut # (Auto) 1.90 (1.7-7.0) K/uL Lymph # (Auto) 1.50 (0.90-2.90) K/uL [place] # (Auto) 0.60 (0.00-0.90) K/UL Eos # (Auto) 0.00 (0.00-0.50) K/uL Baso # (Auto) 0.00 (0.00-0.30) K/uL Abs Immat Gran (auto) 0.02 (0.00-0.30) K/uL Urine Color Yellow (Yellow) Urine Appearance Cloudy A (Clear) Urine pH 8.5 (5.0-8.5) Ur Specific [place] 1.015 (1.000-1.030) Urine Protein Negative (Negative) Urine Glucose (UA) Negative (Negative) Urine Ketones Negative (Negative) Urine Blood Negative (Negative) Urine Nitrite Positive A (Negative) Urine Bilirubin Negative (Negative) Urine Urobilinogen 1.0 (0.2-1.0) Ur Leukocyte Esterase 3+ A (Negative) Urine RBC 0-2 (0-2) Urine WBC 5-10 A (0-5) Ur Squamous Epith Cells None (None-Few) Urine Bacteria Many A (None) Discharge Plan Discharge Clinical Impression: Urinary tract infection Patient Disposition: Home, Self-Care Condition: Stable Additional Instructions: Return to the emergency department if you get a fever. See your doctor in 2 days for recheck of your symptoms and your urine culture. 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 I have prescribed cephalexin or Keflex for you to take to treat her urine infection. Prescriptions: No Action naproxen sodium [Aleve] 220 mg capsule 440 mg PO BID PRN Tylenol Extra Strength 500 mg powder in packet 500 mg PO Q6H PRN nitroglycerin 0.3 mg tablet, sublingual 0.3 mg sublingual Q5M PRN Rx Instructions: do not exceed 3 doses per episode B12 Active 1,000 mcg tablet,chewable 1,000 mcg PO QDAY Qty: 90 3RF rosuvastatin 10 mg tablet Label Comments: TAKE 1 TABLET BY MOUTH AT BEDTIME alfuzosin 10 mg tablet extended release 24 hr PO Label Comments: TAKE 1 TABLET BY MOUTH ONCE DAILY WITH MEAL Follow Up/Referrals: Marco Baldwin MD [Primary Care Provider] - Stand Alone Forms: [employer] Info Instructions
[2022-08-01 17:46] LABS: Chloride* 102 mmol/L (96-114); Sodium* 137 mmol/L (135-149)
[2022-08-01 17:49] LABS: Blood Urea Nitrogen* 25 mg/dL (7-30); Carbon Dioxide* 26 mmol/L (20-32); Creatinine* 0.8 mg/dL (0.5-1.5); Est. Creatinine Clearance* 57.93; Estimated Glomerular Filt Rate 89 ml/min
[2022-08-01 17:50] LABS: Calcium* 9.2 mg/dL (8.4-10.6); Glucose* 109 mg/dL (60-115)
[2022-08-01 18:07] VITALS: BP 132/55; PULSE 83; RESP 20; TEMP 36.8
== END 2022-08-01 18:08 | disposition home or self-care (01) ==
PROVIDERS: Emergency Provider Family Medicine; PCP Surgery
DX: N39.0 Urinary tract infection, site not specified (principal)
CPT/HCPCS: 36415; 80048; 81003; 81015; 85025; 87086; 87186; 99283; 99284

== ENCOUNTER 2023-01-22 12:52 | Emergency (ER) | payer OTHER, SELFPAY ==
[2023-01-22 13:17] VITALS: BP 154/78; RESP 20; TEMP 37.3; O2SAT 96; BMI 32.8
[2023-01-22] MEDS: OXYCODONE 5 MG TABLET 2.5 MG PO (15:17)
[2023-01-22 15:37] LABS: Strep A DNA Probe* NOT DETECTED (Not Detectd)
--- NOTE | 2023-01-22 15:55 | ED_ITS ---
HPI - General Adult General Date Seen: 01/22/23 Chief complaint: Ear/Nose/Throat Problem Stated complaint: Trouble swallowing, covid+ Time Seen by Provider: 01/22/23 14:37 Source: patient Mode of arrival: ambulatory Limitations: no limitations History of Present Illness HPI narrative: Patient is an 82-year-old male who developed symptoms of sore throat congestion and cough yesterday. He was seen in clinic and then received a call last night that his COVID test was positive. Today he called saying that his sore throat was worse and was told to come in because he probably also had strep throat. He has not had fevers. He says that he is having difficulty swallowing and his daughter was worried about dehydration. He is swallowing secretions. Does take Coumadin, and says they were told that he should not take Tylenol because of the Coumadin. He obviously does not take ibuprofen because of the Coumadin. As a result, he is not taking minimal medications for pain. He has been taking a little bit of Tylenol, her but has been trying to minimize that. No significant respiratory complaints. Related Data Home Medications Medication Instructions Recorded Confirmed alfuzosin 10 mg tablet,extended mg PO 07/06/22 07/27/22 release 24 hr rosuvastatin 10 mg tablet mg 07/06/22 07/27/22 acetaminophen 500 mg oral powder 500 mg PO Q6H PRN 07/27/22 07/27/22 packet (Tylenol Extra Strength) naproxen sodium 220 mg capsule 440 mg PO BID PRN 07/27/22 07/27/22 (Aleve) nitroglycerin 0.3 mg sublingual 0.3 mg sublingual Q5M PRN 07/27/22 07/27/22 tablet Previous Rx's Medication Instructions Recorded mecobalamin (vitamin B12) 1,000 1,000 mcg PO QDAY #90 tabs 07/27/22 mcg chewable tablet (B12 Active) Allergies Allergy/AdvReac Type Severity Reaction Status Date / Time No Known Drug Allergies Allergy Verified 01/22/23 13:21 Review of Systems Status of ROS: Reports: 6 or more systems reviewed and unremarkable except as noted in History and below [facility] Medical History Anxiety BPH (benign prostatic hyperplasia) Coronary artery disease Diabetes mellitus type 2 in obese Esophageal stricture Hernia Hypertension Recurrent urinary tract infection Severe aortic stenosis Surgical History History of coronary artery bypass graft History of hernia repair Social History Smoking Status: Never smoker How often do you have a drink containing alcohol: never AUDIT-C Alcohol total score: 0 Non-prescribed substance use: denies use service: Yes Exam Narrative: Exam Narrative: Vital signs reviewed In general, an alert, nontoxic male. Breathing easily. Eyes: Sclera clear. ENT: Nares are slightly congested. Mucous membranes are moist. Throat is normal in appearance, there is no significant exudate, no edema, no evidence of peritonsillar abscess, no significant edema. Neck: Supple, no stridor. No adenopathy. No tracheal tenderness. Heart: Regular rate and rhythm. Systolic murmur. Lungs: Clear. No crackles, no wheezes. No increased work of breathing. Skin: Warm and dry, well perfused. Const: Vital Signs, click to edit/add: Vital Signs - 24 hr 01/22/23 13:17 Temperature 99.2 F Respiratory Rate 20 Blood Pressure [Ri ght Upper Arm] 154/78 H Pulse Oximetry 96 Oxygen Delivery Me thod Room Air Documenting provider has reviewed patient's vital signs: yes Course Course Hospital Course: Patient is swallowing secretions without difficulty here. I checked a strep which was negative. Discussed with him that his sore throat I believe is coming from the COVID. I do not see evidence of more ominous cause of sore throat such as peritonsillar abscess, retropharyngeal abscess, epiglottitis, etc.. For now would recommend simply supportive measures. I do think it is reasonable for him to take standard doses of Tylenol, his INR can be recheck next week and dosage can be modified if needed. I gave him 2.5 mg of oxycodone he here, he says he tolerates this medication without significant side effects, and they are very concerned that he is not going to be able to tolerate adequate fluids at home secondary to his sore throat. He can use that medication if needed for severe symptoms. If he has high fevers, cannot swallow secretions, or if he develops more significant respiratory symptoms, return to the emergency department for re-evaluation. Vital Signs Vital signs: Initial Vital Signs Temperature 99.2 F 01/22/23 13:17 Temperature Source Temporal Artery Scan 01/22/23 13:17 Respiratory Rate 20 01/22/23 13:17 Blood Pressure 154/78 H 01/22/23 13:17 Blood Pressure Mean 103 01/22/23 13:17 Blood Pressure Position Sitting 01/22/23 13:17 Pulse Oximetry 96 01/22/23 13:17 Oxygen Delivery Method 01/22/23 13:17 Vital Signs Temperature 99.2 F 01/22/23 13:17 Respiratory Rate 20 01/22/23 13:17 Blood Pressure 154/78 H 01/22/23 13:17 Pulse Oximetry 96 01/22/23 13:17 Oxygen Delivery Method 01/22/23 13:17 Temperature 99.2 F 01/22/23 13:17 Respiratory Rate 20 01/22/23 13:17 Blood Pressure 154/78 H 01/22/23 13:17 Pulse Oximetry 96 01/22/23 13:17 Oxygen Delivery Method 01/22/23 13:17 Medical Decision Making Lab Data Labs: Lab Results 01/22/23 Range/Units 14:48 Group A Strep DNA NOT DETECTED (Not Detectd) Discharge Plan Discharge Clinical Impression: COVID-19, Sore throat Patient Disposition: Home, Self-Care Condition: Improved Instructions: Pharyngitis (ED), COVID-19 (Coronavirus Disease 2019) (ED) Additional Instructions: Tylenol 1000 mg 3 times daily. Recheck Coumadin level next week. Oxycodone 2 and half to 5 mg as needed for more severe pain. Maintain hydration. Follow up with primary care for ongoing difficulties. If you have worsening respiratory symptoms or cannot swallow secretions, return to the emergency department. Prescriptions: No Action naproxen sodium [Aleve] 220 mg capsule 440 mg PO BID PRN Tylenol Extra Strength 500 mg powder in packet 500 mg PO Q6H PRN nitroglycerin 0.3 mg tablet, sublingual 0.3 mg sublingual Q5M PRN Rx Instructions: do not exceed 3 doses per episode B12 Active 1,000 mcg tablet,chewable 1,000 mcg PO QDAY Qty: 90 3RF rosuvastatin 10 mg tablet Label Comments: TAKE 1 TABLET BY MOUTH AT BEDTIME alfuzosin 10 mg tablet extended release 24 hr PO Label Comments: TAKE 1 TABLET BY MOUTH ONCE DAILY WITH MEAL Follow Up/Referrals: Marco Baldwin MD [Primary Care Provider] - Stand Alone Forms: [facility] [employer] Info Instructions
== END 2023-01-22 15:58 | disposition home or self-care (01) ==
PROVIDERS: Emergency Provider Emergency Medicine; PCP Surgery
DX: U07.1 COVID-19 (principal); J02.9 Acute pharyngitis, unspecified
CPT/HCPCS: 87651; 99283; 99284; A9270

== ENCOUNTER 2024-07-11 13:00 | Outpatient (RCR) | payer OTHER, SELFPAY ==
--- NOTE | 2024-06-27 17:19 | PT.OPEX ---
PT [place] Outpatient Eval PT [facility] Outpatient Eval Start: 06/27/24 13:48 Freq: Status: Active Protocol: Document 06/27/24 13:48 BRYANT (Rec: 06/27/24 17:19 BRYANT [id number]) E-signed By Chiara Simons PT Physical Therapy Outpatient Evaluation Insurance Information Recert Due Date 09/24/24 Insurance Name Medicare B Medical Diagnosis coracoclavicular ligament sprain S43. 419A Treating Diagnosis RIGHT SHOULDER PAIN Referring KAMLESH AWAD Subjective Preferred Name FRANCES Subjective PATIENT REPORTS THAT ~1MONTH AGO HE WAS WALKING IN HIS [place] ONE NIGHT AND INADVERTENTLY HOOKING HIS FOOT UNDER THE STRUCTURE HOLDING HIS TRANSMISSION HE IS REPAIRING PLACED ON THE FLOOR ON THE FLOOR. HE HAD JUST TURNED THE LIGHT OUT AND FORGOT THE TRANSMISSION WAS IN HIS PATH. HE HOOKED HIS RIGHT FOOT AND FELL ON HIS LEFT WRIST AND LEFT ELBOW FORCING HIS SHOULDER BKWD. HE EXPERIENCED SIGNIFICANT PAIN ABOUT THE JOINTS HE STRUCK BUT , EVENTUALLY, THEY ALL IMPROVED. HE HAD AN APPT WITH HIS PCP TO SPEAK ABOUT POTENTIAL INFECTION FROM HIS [place]QU[place] BITES WHEN HE MENTIONED THE FALL AND THE CIRCUMSTANCE. HE NOW HAS RESIDUAL TENDERNESS AT THE CORACOID PROCESS WHEN REACHING BACK BUT CAN ELIMINATE THE PAIN WITH DIRECT PRESSURE. HE IS A [employer] AND HAS JUST PUSHED THROUGH TO GET WHAT NEEDED TO BE DONE, DONE. HE HIS HERE TO MAKE SURE THERE IS NOTHING SERIOUSLY WRONG AND TO GET ON A GOOD PATH FOR CONTINUED RECOVERY. HE WILL BE LEAVING FOR HIS WINTER HOME IN [place], [place] AROUND AUGUST. Pain Comments 2-4/10 WITH REACHING BEHIND BACK; IF HE APPLIES PRESSURE TO CORACOID PROCESS, HE ELIMINATES PAIN Date of Last Physician Visit 06/12/24 Current Work Status Retired Occupation [employer] Precautions Treatment Precautions/Contraindications [id number] Therapy Limitations/Systems Review Hearing Assessment Assessment/Impression PATIENT IS AN 83 YO RETIRED AND [employer] REFERRED BY DR. ASHLEY TO PHYSICAL THERAPY TO ADDRESS RIGHT SHOULDER PAIN RESULT OF A FALL; PMHX INCLUDES BUT NOT LIMITED TO CAD WITH CABG AND TAVR (07/2022), BPH, HTN, DMII, ANXIETY. PATIENT EXPERIENCED FALL WHERE HE LANDED ON HIS ELBOW AND FORCEFULLY PUSHED SHOULDER POSTERIORLY WHILE ANTERIORLY BRACING. HE DEMONSTRATES TTP AT THE CORACOID PROCESS, PROXIMAL SHORT HAD OF BICEPS AND PEC MINOR TENDON. HE DOES NOT HAVE PRONOUNCED IMPINGEMENT SIGNS NOR PAINFUL ARC. HE PRESENTS WITH SIGNS AND SYMPTOMS CONSISTENT WITH A LIGAMENTOUS STRAIN ABOUT THE CORACOID PROCESS AND CLAVICAL WELL BOTH A BICEPS AND PEC STRAIN FROM BRACING THE FALL. TODAY WE DISCUSSED, AT LENGTH, THE ANATOMY AND INJURY INCURRED. HE ESSENTIALLY PROVIDES AN EXTERNAL BRACE WHEN HE PLACES HIS HAD ON THE CORACOID PROCESS HE CONCURRENTLY MOVES HIS ARM POSTERIORLY. HE WOULD BENEFIT FROM A BASIC RTC/SCAP STRENGTHENING AND STABILIZATION WELL GENTLE STRETCHING FOR CONTINUED HEALING. PATIENT VERBALIZED UNDERSTANDING OF ALL SKILLED INSTRUCTION AND IN AGREEMENT WITH POC AND FREQ. Primary Functional Limitations LIFTING WITH OUTSTRETCHED ARM TO THE SIDE AND REACHING BEHIND. Plan of Care Rehabilitation Potential Good Physical Therapy Goals IN 6-10 VISITS: 1. DECREASE SHOULDER PAIN TO < /2-3/10 WITH DAILY ACTIVITIES AND WITH THE PROGRESSION OF HIS HEP OVER THE NEXT 4 WEEKS. 2. DEMONSTRATE PAIN FREE AROM OVER THE NEXT 4-6 WEEKS DURING DAILY ACTIVITIES WITHOUT FLARE UPS OF SYMPTOMS. 3. PATIENT WILL VERBALIZED UNDERSTANDING OF POSTURING AND BODY MECHANICS IT RELATES TO DECREASING STRESS, IMPROVED SHOULDER MECHANICS, AND DECREASED SYMPTOMS. 4.PATIENT WILL DEMONSTRATES IMPROVED STRENGTH TO FACILITATE RETURN TO DAILY ACTIVITIES WITH LESS SYMPTOMS AND DECREASED OPPORTUNITIES FOR FLARE UP OF PAIN 5. PATIENT WILL BE INDEPENDENT WITH HER HEP WITHIN THE NEXT 6-8 WEEKS FOR PROGRESSION TWD ABOVE MENTION GOALS, CONTINUED MGMT OF SYMPTOMS, AND ONGOING SELF IMPROVEMENTS IN POSTURING/STRENGTH/ STABILIZATION. Coordination/Communication With Referral Source Treatment Plan/Direct Interventions Joint Mobilization,Manual Therapy,Neuromuscular Re-ed, Self-Care/Home Management, Therapeutic Activities, Therapeutic Exercises Frequency/Duration 1X Patient Will Be Discharged From Therapy Completion of LTG(s), Independent w/HEP Evaluation Billing PT Eval No Charge No Complexity Low Certification Information Initial Certification Date 06/27/24 Ending Certification Date 09/24/24 Provider Signature Required Yes Provider Signature Shows Agreement With POC & Medical Necessity Physician NPI Number Write NPI# Here Physician Comment/Change : Physician Signature & Date Requested Please Sign/Date Here
== END 2024-09-17 14:42 | disposition home or self-care (01) ==
PROVIDERS: PCP Surgery; Visit Provider Surgery
DX: M25.511 Pain in right shoulder (principal); S43.419A Sprain of unspecified coracohumeral (ligament), initial encounter; Z51.89 Encounter for other specified aftercare
CPT/HCPCS: 97110; 97161